=== PATIENT | female | born 1965 | race Caucasian/White ===

== ENCOUNTER → 2020-10-29 | Outpatient (CLI) | payer OTHER ==
[~2020-10-29] MED LIST: ACID REDUCER 1150 MG PO; ADVIL MIGRAINE200 MG PO; ADVIL200 MG PO; AMBIEN10 MG PO; CYMBALTA60 MG PO; DEXTROAMP-AMPHE20 MG PO; FENOFIBRATE54 MG PO; FLOMAX0.4 MG PO; FLUTICASONE PRO16 GM; IPRATROPIUM BRO15 ML; LIPITOR TAB 2020 MG PO; TORADOL 10 MG T10 MG PO; TRAZODONE HCL150 MG PO; WELLBUTRIN XL150 M1 PO; ZOFRAN ODT 4 MG4 MG PO
== END ==
LOC: EMI 15:25
DX: M51.16 Intervertebral disc disorders with radiculopathy, lumbar region (principal); M47.26 Other spondylosis with radiculopathy, lumbar region; M48.061 Spinal stenosis, lumbar region without neurogenic claudication; M47.22 Other spondylosis with radiculopathy, cervical region; N28.89 Other specified disorders of kidney and ureter; M48.02 Spinal stenosis, cervical region
CPT/HCPCS: 72141; 72148

== ENCOUNTER → 2020-11-24 | Outpatient (CLI) | payer OTHER | LOC: CT 15:14 | DX: N28.9 Disorder of kidney and ureter, unspecified (principal); N28.1 Cyst of kidney, acquired | CPT/HCPCS: Q9967 ==